=== PATIENT | female | born 1930 | race Caucasian/White ===

== ENCOUNTER 2017-11-17 14:45 | Emergency (ER) | payer OTHER, MEDICARE ==
[~2017-11-17] VITALS: Ht 167.6 cm; Wt 104.3 kg
--- NOTE | ~2017-11-17 | EKG ---
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: GAVIN : 1930 Requested By: Kyler Quintero Order Number: [id number] MD: Apolinar Gentile Measurements Intervals [place] Rate: 79 P: 71 TN: 177 QRS: -7 QRSD: 81 T: 88 QT: 526 QTc: 604 Interpretive Statements Sinus rhythm Ventricular premature complex Low voltage, extremity leads Nonspecific T wave abnormality Compared to ECG 09/10/2015 11:24:23 Ventricular premature complex(es) now present Nonspecific change in the T wave abnormality Electronically Signed On 11-18-2017 8:00:24 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
[~2017-11-17 14:45] MED LIST: ACETAMINOPHEN650 M5 PO; ACID CONTROL20 MG PO; ASPIRIN EC81 M1 PO; BACTRIM DS TAB1 EACH PO; CALCIUM; CALCIUM 600 +1 EAC1 PO; CELEXA 10 MG TA10 M1 PO; CENTRUM SILVER1 EAC1 PO; CENTRUM SILVER1 EAC4 PO; COLACE100 MG PO; COUMADIN 5 MG TA5 M1 PO; CYMBALTA30 MG PO; CYMBALTA60 MG PO; ENABLEX15 MG; EXELON 9.5 MG9.5 MG TD; EXELON4.5 MG TRANSDERM; FISH OIL 1,0001 EAC5 PO; FISH OIL 1,001000 M2 PO; FISHOIL; FLOMAX0.4 MG PO; IBUPROFEN 400400 M2 PO; JANTOVEN7.5 MG PO; LEVAQUIN 500 M500 MG PO; METAMUCIL POWD288 GM PO; MOBIC15 MG PO; MOM PO; NABUMETONE 500500 M1 PO; NITROFURANTOIN100 MG PO; PAROXETINE HCL10 MG PO; PHENERGAN12.5 M1 PO; PLAVIX 75 MG TA75 M1 PO; PREVACID15 MG PO; PRISTIQ50 M1 PO; PROMETHAZINE12.5 M1 PO; RESTORIL15 MG PO; RISPERDAL0.25 MG PO; SENOKOT-S1 TA1 PO; SYNTHROID25 MC1 PO; SYNTHROID25 MCG PO; SYNTHROID50 MCG PO; TOPROL XL25 MG PO; TRAMADOL 50 MG50 MG PO; TYLENOL PM PO; TYLENOL325 MG PO; UROXATRAL PO; VITAMINC500 PO; WOBENZYM N PO; ZOFRAN ODT4 MG PO; [UNRECOGNIZED DRUG - OTHER]
[2017-11-17 15:15] LABS: ABSOLUTE NEUTROPHILS 7.5 thou/uL (1.4-8.2); BASOPHILS 0.8 % (0.0-2.0); EOSINOPHILS 1.8 % (0.0-3.0); HEMATOCRIT 34.6 % (37.0-47.0); MCH 34.4 pg (26.0-34.0); MCHC 34.6 g/dL (28.0-37.0); MCV 99.5 fL (80.0-100.0); MONOCYTES 8.9 % (1.0-8.0); POLYS 57.5 % (36.0-66.0); RBC 3.48 mil/uL (4.20-5.00); RDW 13.8 % (10.5-14.5); WBC 18.1 thou/uL (4.0-11.0)
[2017-11-17 15:28] LABS: ANION GAP 9 mmol/L (7-16); BUN 34 mg/dL (7-18); CALCIUM 9.4 mg/dL (8.5-10.1); CHLORIDE 103 mmol/L (98-107); CO2 27 mmol/L (21-32); CREATININE 1.9 mg/dL (0.6-1.0); GLUCOSE 102 mg/dL (74-106); POTASSIUM 4.9 mmol/L (3.5-5.1); SODIUM 139 mmol/L (136-145)
[2017-11-17 15:36] LABS: TROPONIN-I < 0.04 ng/mL (<0.06)
[2017-11-17 15:45] LABS: PLATELET COUNT 262 thou/uL (150-400); PLATELET ESTIMATE NORMAL
[2017-11-17] MEDS ORDERED: AZITHROMYCIN 2250 MG PO (16:39)
[2017-11-17 16:47] VITALS: BP 134/69
== END 2017-11-17 17:07 | disposition home or self-care (01) ==
LOC: ER 14:45
PROVIDERS: Emergency Medicine
DX: J40 Bronchitis, not specified as acute or chronic (principal); E03.9 Hypothyroidism, unspecified; M19.90 Unspecified osteoarthritis, unspecified site; K21.9 Gastro-esophageal reflux disease without esophagitis; E78.5 Hyperlipidemia, unspecified; F03.90 Unspecified dementia, unspecified severity, without behavioral disturbance, psychotic disturbance, mood disturbance, and anxiety; Z90.49 Acquired absence of other specified parts of digestive tract

== ENCOUNTER → 2017-11-18 | Outpatient (CLI) | payer OTHER, MEDICARE ==
[~2017-11-18] MED LIST changes: +APAP650 PO; +AZITHROMYCIN 2250 MG PO; +BRINTELLIX5 MG PO; +DETROL LA4 MG PO; +GABAPENTIN 100100 MG PO; +GLUCOSAMINE-CH1 EA35 PO; +MIRALAX17 GM PO; +PROTONIX40 M1 PO
== END ==
LOC: ULTRA 15:10
DX: M79.605 Pain in left leg (principal); R60.0 Localized edema

== ENCOUNTER 2018-03-23 13:03 | Emergency (ER) | payer OTHER, MEDICARE ==
[~2018-03-23] VITALS: Ht 162.6 cm; Wt 78.0 kg
--- NOTE | ~2018-03-23 | EKG ---
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 : 1930 Requested By: Elvie Jose Order Number: [id number] MD: Apolinar Gentile Measurements Intervals [place] Rate: 97 P: 54 [place]: 178 QRS: -18 QRSD: 86 T: 93 QT: 332 QTc: 422 Interpretive Statements Sinus rhythm Ventricular premature complex Inferior infarct, old Compared to ECG 11/17/2017 15:00:42 No significant change was found Electronically Signed On 03-23-2018 16:38:10 CDT by Apolinar Gentile [email or web address] <ELECTRONICALLY SIGNED> By: Apolinar Gentile MD, [facility] 03/23/18 1638 1326 25 Apolinar Gentile MD, [facility] /EPI
[~2018-03-23 13:03] MED LIST changes: -APAP650 PO; -BRINTELLIX5 MG PO; -DETROL LA4 MG PO; -GABAPENTIN 100100 MG PO; -GLUCOSAMINE-CH1 EA35 PO; -MIRALAX17 GM PO; -PROTONIX40 M1 PO
[2018-03-23] MEDS ORDERED: PROTONIX40 M1 PO (13:27)
[2018-03-23] MEDS ORDERED: BRINTELLIX5 MG PO (13:28)
[2018-03-23] MEDS ORDERED: GLUCOSAMINE-CH1 EA35 PO (13:28)
[2018-03-23] MEDS ORDERED: GABAPENTIN 100100 MG PO (13:29)
[2018-03-23] MEDS ORDERED: APAP650 PO (13:29)
[2018-03-23] MEDS ORDERED: DETROL LA4 MG PO (13:29)
[2018-03-23 13:51] LABS: ABSOLUTE NEUTROPHILS 4.1 thou/uL (1.4-8.2); BASOPHILS 0.8 % (0.0-2.0); EOSINOPHILS 8.8 % (0.0-3.0); HEMATOCRIT 35.2 % (37.0-47.0); HEMOGLOBIN 12.3 gm/dL (12.0-15.0); LYMPHOCYTES 31.7 % (24.0-44.0); MCH 34.7 pg (26.0-34.0); MCHC 34.9 g/dL (28.0-37.0); MCV 99.5 fL (80.0-100.0); MONOCYTES 8.9 % (1.0-8.0); PLATELET COUNT 216 thou/uL (150-400); POLYS 49.8 % (36.0-66.0); RBC 3.54 mil/uL (4.20-5.00); RDW 14.4 % (10.5-14.5); WBC 8.1 thou/uL (4.0-11.0)
[2018-03-23 14:05] LABS: URINE BILIRUBIN NEGATIVE (Negative); URINE BLOOD NEGATIVE (Negative); URINE CLARITY CLEAR; URINE COLOR YELLOW; URINE GLUCOSE-RANDOM* NEGATIVE (Negative); URINE KETONES NEGATIVE (Negative); URINE LEUKOCYTES-REFLEX NEGATIVE (Negative); URINE NITRITE-REFLEX NEGATIVE (Negative); URINE PROTEIN (DIPSTICK) NEGATIVE (Negative); URINE UROBILINOGEN 0.2 E.U./dl (0.2-1.0)
[2018-03-23 14:33] LABS: ANION GAP 6 mmol/L (7-16); BUN 26 mg/dL (7-18); CALCIUM 10.9 mg/dL (8.5-10.1); CHLORIDE 103 mmol/L (98-107); CO2 28 mmol/L (21-32); CREATININE 1.9 mg/dL (0.6-1.0); GLUCOSE 129 mg/dL (74-106); INR 1.1; POTASSIUM 3.9 mmol/L (3.5-5.1); PROTIME 10.8 Seconds (9.3-11.4); SODIUM 137 mmol/L (136-145)
[2018-03-23 14:40] LABS: ALBUMIN 3.5 g/dL (3.4-5.0); SGOT 16 U/L (15-37); SGPT 22 U/L (30-65); TOTAL BILIRUBIN 0.3 mg/dL (<0.1-1.0); TROPONIN-I <0.06 ng/mL (<0.06)
== END 2018-03-23 16:25 | disposition home or self-care (01) ==
LOC: ER 13:03
PROVIDERS: Physician Assistant
DX: N18.9 Chronic kidney disease, unspecified (principal); R42 Dizziness and giddiness; E03.9 Hypothyroidism, unspecified; M19.90 Unspecified osteoarthritis, unspecified site; K21.9 Gastro-esophageal reflux disease without esophagitis; E78.5 Hyperlipidemia, unspecified; Z90.49 Acquired absence of other specified parts of digestive tract

== ENCOUNTER 2018-06-19 16:18 | Emergency (ER) | payer OTHER, MEDICARE ==
[~2018-06-19] VITALS: Ht 167.6 cm; Wt 61.7 kg
[~2018-06-19 16:18] MED LIST changes: +APAP650 PO; +BRINTELLIX5 MG PO; +DETROL LA4 MG PO; +GABAPENTIN 100100 MG PO; +GLUCOSAMINE-CH1 EA35 PO; +PROTONIX40 M1 PO
[2018-06-19 18:15] LABS: URINE BILIRUBIN NEGATIVE (Negative); URINE BLOOD NEGATIVE (Negative); URINE CLARITY CLEAR; URINE COLOR YELLOW; URINE GLUCOSE-RANDOM* NEGATIVE (Negative); URINE KETONES NEGATIVE (Negative); URINE LEUKOCYTES-REFLEX NEGATIVE (Negative); URINE NITRITE-REFLEX NEGATIVE (Negative); URINE PROTEIN (DIPSTICK) NEGATIVE (Negative); URINE SPECIFIC GRAVITY >= 1.030 (1.005-1.035); URINE UROBILINOGEN 0.2 E.U./dl (0.2-1.0)
[2018-06-19] MEDS ORDERED: MIRALAX17 GM PO (18:36)
== END 2018-06-19 19:33 | disposition home or self-care (01) ==
LOC: ER 16:18
PROVIDERS: Emergency Medicine
DX: K59.01 Slow transit constipation (principal); E03.9 Hypothyroidism, unspecified; M19.90 Unspecified osteoarthritis, unspecified site; E78.5 Hyperlipidemia, unspecified; Z90.49 Acquired absence of other specified parts of digestive tract; K21.9 Gastro-esophageal reflux disease without esophagitis; F03.90 Unspecified dementia, unspecified severity, without behavioral disturbance, psychotic disturbance, mood disturbance, and anxiety